=== PATIENT | male | born 1995 | race Caucasian/White ===

== ENCOUNTER 2017-02-08 01:34 | Emergency (ER) | payer BC, OTHER ==
[~2017-02-08] VITALS: Ht 175.3 cm; Wt 95.0 kg
[2017-02-08 01:35] VITALS: Ht 175.3 cm; Wt 95.0 kg
--- NOTE | 2017-02-08 02:00 | EMERGENCY ROOM VISIT NOTE ---
History Report prepared by Rhys: Valentin Ramsey Under the Supervision of: Dr. Lois Fernandes D.O. First contact with patient: 01:39 Chief Complaint: ALCOHOL OVERDOSE Stated Complaint: TOO MUCH ALCOHOL,SICK IN STOMACH,LACK OF COORDINAT Nursing Triage Summary: pt was drinking liquor and vomiting, friends stayed with him for an hour but he wasn't feeling better so they brought him in here History of Present Illness The patient is a 21 year old male who presents to the Emergency Room with an alcohol overdose. Nursing staff states his friends were caring for him at home. They report the patient was progressively getting worse, so they called EMS. HPI is limited secondary to the patient's intoxication. Source of History: nursing staff History Limited By: intoxication Review of Systems ROS is limited secondary to the patient's intoxication. Past Medical & Surgical Unobtainable secondary to the patient's intoxication. Family History Unobtainable secondary to the patient's intoxication. Social History Occupation Status: [employer] student Current/Historical Medications No Active Prescriptions or Reported Meds Allergies Coded Allergies: Amoxicillin (Verified Allergy, Mild, RASH, 02/08/17) Physical Exam Vital Signs Date Time Temp Pulse Resp B/P (MAP) Pulse Ox O2 Delivery O2 Flow Rate FiO2 02/08/17 05:25 78 18 118/62 98 Room Air 02/08/17 05:00 83 17 128/66 96 02/08/17 04:30 78 17 117/60 97 Room Air 02/08/17 04:00 81 16 124/58 99 Room Air 02/08/17 03:30 79 14 129/60 100 Room Air 02/08/17 02:30 73 12 134/59 94 Room Air 02/08/17 02:00 69 23 137/74 93 Room Air 02/08/17 01:55 71 02/08/17 01:35 70 18 127/77 95 Room Air Physical Exam General: Patient is unresponsive and smells of alcohol. HEENT: Head - normocephalic and atraumatic Pupils are 2mm and sluggishly to light. Extraocular eye muscles are intact, and sclera are anicteric. Nose - moist nasal mucosa without discharge. Mouth - moist buccal mucosa. Oropharynx is nonerythematous and there is no tonsillar exudate or edema noted. Neck: Supple; no JVD, nuchal rigidity, cervical lymphadenopathy. Heart: Regular rate and rhythm. There is a normal S1 and S2 with no murmurs, clicks, or gallops appreciated. Lungs: Clear to auscultation bilaterally with no wheezes, rales, or rhonchi. Abdomen: Soft, completely nontender, nondistended, with good bowel sounds. There are no palpable pulsatile masses or hepatosplenomegaly. There is no guarding, rigidity, or rebound noted. Extremities: No evidence of cyanosis, clubbing, or edema. There are easily palpable peripheral pulses. Skin: warm and dry with good turgor and no rashes. Medical Decision & Procedures Laboratory Results 02/08/17 02:01 Test 02/08/17 02:01 Anion Gap 10.0 mmol/L (3-11) Est Creatinine Clear Calc Drug Dose 195.9 ml/min Estimated GFR () > 150.0 Estimated GFR (Non- 137.6 BUN/Creatinine Ratio 11.9 (10-20) Calcium Level 8.1 mg/dl (8.5-10.1) Ethyl Alcohol mg/dL 187.0 mg/dl (0-3) Laboratory results per my review. ED Course 0151: Past medical records reviewed. The patient was evaluated in room B12A. A complete history and physical exam was performed. A complete history and physical exam was performed. Labs were drawn as above. The patient was placed in the prone position to avoid aspiration. He was observed on a electronic device monitor and pulse oximeter. 0305: I reevaluated the patient. He is asleep and his vitals are stable 0441: I reevaluated the patient. He is asleep and his vitals are stable. 0525: Nursing staff are attempting to awake the patient at this time. 0551: Upon reevaluation, the patient is feeling better. I discussed findings and results with him. I also discussed the need to avoid alcohol. He verbalized agreement of the treatment plan. The patient was discharged home with friends or a taxi. Medical Decision The patient is a 21 year old male who presents to the ED with an alcohol overdose. Differential diagnosis includes alcohol overdose, drug intoxication, closed head injury, hypoglycemia. Lab results show: alcohol of 187, glucose of 130, normal renal function, potassium is slightly low at 3.2. The JOSE LUIS 21-year-old male patient was brought to the emergency department after consuming too much alcohol. He was observed here in the ER until he was more sober. I reviewed the results of his labs with him. I encouraged him to avoid such excessive alcohol use in the future. Impression Primary Impression: Alcohol overdose Scribe Attestation The scribe's documentation has been prepared under my direction and personally reviewed by me in its entirety. I confirm that the note above accurately reflects all work, treatment, procedures, and medical decision making performed by me. Departure Information Dispostion Home / Self-Care Prescriptions No Active Prescriptions or Reported Meds Referrals No Doctor, Assigned (PCP) Forms HOME CARE DOCUMENTATION FORM, IMPORTANT VISIT INFORMATION Patient Instructions ED Overdose Alcohol, [facility]: [employer] Students and Alcohol Related Visits, My [facility] Additional Instructions Rest. Take plenty of clear liquids. Avoid such excessive alcohol use in the future Take tylenol for headache Problem Qualifiers Primary Impression: Alcohol overdose Encounter type: initial encounter Injury intent: accidental or unintentional Qualified Codes: T51.91XA - Toxic effect of unspecified alcohol , accidental (unintentional), initial encounter
[2017-02-08 02:36] LABS: BLOOD UREA NITROGEN 8 mg/dl (7-18); BUN/CREATININE RATIO 11.9 (10-20); CALCIUM 8.1 mg/dl (8.5-10.1); CARBON DIOXIDE 24 mmol/L (21-32); CHLORIDE 104 mmol/L (98-107); CREATININE 0.69 mg/dl (0.60-1.40); GLUCOSE 130 mg/dl (70-99); POTASSIUM 3.2 mmol/L (3.5-5.1); SODIUM 138 mmol/L (136-145)
[2017-02-08 05:25] VITALS: BP 118/62; PULSE 78; O2SAT 98
== END 2017-02-08 05:55 | disposition home or self-care (01) ==
LOC: C.EDB 01:35
DX: T51.91XA Toxic effect of unspecified alcohol, accidental (unintentional), initial encounter (principal)